=== PATIENT | female | born 1970 | race Caucasian/White ===

== ENCOUNTER 2020-11-02 09:52 | Day surgery (SDC) | payer OTHER ==
[2020-10-31 12:24] VITALS: BMI 22.1
[~2020-11-02 09:52] MED LIST: LIDOCAINE 1% (10MG/ML) FOR IV START INTRADERMA PRN
[2020-11-02] MEDS: LACTATED RINGERS 1,000 ML IV SCH ×2 (10:19→10:40)
[2020-11-02 10:37] VITALS: TEMP 97.2
[2020-11-02] MEDS ORDERED: fentaNYL (PF) 50 MCG/ML 2 ML AMP ONE (11:30)
[2020-11-02] MEDS ORDERED: PROPOFOL 10 MG/ML 20 ML VIAL IV ONE (11:30)
[2020-11-02] MEDS ORDERED: GLUCAGON 1 MG/ML VIAL ONE (11:30)
[2020-11-02] MEDS ORDERED: MIDAZOLAM 2 MG/2 ML VIAL ONE (11:30)
[2020-11-02] MEDS ORDERED: diphenhydrAMINE 50 MG/ML 1 ML VIAL ONE (11:30)
--- NOTE | 2020-11-02 11:37 | P.GSHP ---
History of Present Illness H&P Date: 11/02/20 Chief Complaint: Colitis The 42-year-old female with history of colitis. Patient that she fell of diarrhea and abdominal pain. She presents today for colonoscopy Past Medical History Past Medical History: Cancer Additional Past Medical History / Comment(s): IBS, HX OF BREAST CANCER, OCCASIONAL IRREGULAR HEART BEAT, CANCER TO FLOOR OF MOUTH-SX History of Any Multi-Drug Resistant Organisms: None Reported Past Surgical History: Breast Surgery, Uterine Ablation Additional Past Surgical History / Comment(s): RIGHT MASTECTOMY ( SEPTEMBER 2012), SX TO REMOVED FLOOR OF MOUTH,LYMPH NODES AND SALIVARY GLANDS, SPENT 1 MONTH IN HOSPITAL WAS ON VENT FOR 11 DAYS AND HAD TRACH. PEG TUBE Past Anesthesia/Blood Transfusion Reactions: No Reported Reaction Smoking Status: Former smoker - Past Family History Mother Family Medical History: No Reported History Medications and Allergies Home Medications Medication Instructions Recorded Confirmed Type Metoprolol Succinate [Toprol XL] 25 mg PO BID 10/31/20 11/02/20 History Allergies Allergy/AdvReac Type Severity Reaction Status Date / Time Penicillins Allergy Unknown Swelling Verified 11/02/20 10:35 povidone-iodine Allergy Unknown Rash/Hives Verified 11/02/20 10:35 [From Betadine] soap [From Betadine] Allergy Unknown Rash/Hives Verified 11/02/20 10:35 Iodinated Contrast Media Allergy Rash/Hives Verified 11/02/20 10:35 [Iodinated Contrast Media - IV Dye] Surgical - Exam Vital Signs Temp Pulse Resp BP Pulse Ox 97.2 F L 91 16 145/85 98 11/02/20 10:36 11/02/20 10:36 11/02/20 10:36 11/02/20 10:36 11/02/20 10:36 - General well developed, well nourished, no distress - Eyes PERRL - ENT normal pinna - Neck no masses - Respiratory normal expansion - Cardiovascular Rhythm: regular - Abdomen Abdomen: soft, non tender Assessment and Plan Assessment: Circumflex place. We'll perform colonoscopy
--- NOTE | 2020-11-02 11:58 | P.OP ---
Date of Procedure: 11/02/20 Preoperative Diagnosis: Colitis Postoperative Diagnosis: Possible proctitis, pathology pending Procedure(s) Performed: Colonoscopy Anesthesia: MAC Surgeon: Sarwat Dick Pathology: other (Rectal biopsy) Condition: stable Disposition: PACU Description of Procedure: A she was placed on the endoscopy table lateral position. She received IV sedation. Digital rectal exam was performed which revealed no abnormalities. Flexible colonoscope was then placed patient anus and passed throughout the entire colon. The ileocecal valve was visualized. Cecum, ascending and transverse colon appeared normal. The descending and sigmoid colon was a few scattered diverticula. There is no evidence of diverticulitis. Scope was then brought back the rectum and a random rectal biopsies performed. Patient's complaints of colitis. The rectum this appeared inflamed. Scope was withdrawn for patient.
[2020-11-02 12:20] VITALS: BP 100/75; PULSE 64; RESP 20
== END 2020-11-02 12:48 | disposition home or self-care (01) ==
LOC: ORWHC2ENDO 09:52
PROVIDERS: ATTEND Surgery
DX: K52.9 Noninfective gastroenteritis and colitis, unspecified (principal); Z85.3 Personal history of malignant neoplasm of breast; K58.9 Irritable bowel syndrome, unspecified; Z85.818 Personal history of malignant neoplasm of other sites of lip, oral cavity, and pharynx; Z87.891 Personal history of nicotine dependence; Z79.899 Other long term (current) drug therapy; Z98.890 Other specified postprocedural states; Z90.11 Acquired absence of right breast and nipple; I49.9 Cardiac arrhythmia, unspecified; Z88.0 Allergy status to penicillin; Z88.8 Allergy status to other drugs, medicaments and biological substances; Z91.041 Radiographic dye allergy status
CPT/HCPCS: 81025; 88305; 45380; J2250; J1200; J1610; J3010; J2704